=== PATIENT | male | born 1940 | race Caucasian/White ===

== ENCOUNTER → 2016-04-26 | Outpatient (CLI) | payer OTHER ==
--- NOTE | 2016-04-26 18:05 | DX ---
Lumbar spine AP and lateral 1153 hours. History: Low back pain. Findings: Images are degraded secondary to patient's body habitus. Vertebral body heights are well-ma intained. There is about 4 mm of posterior subluxation of L2 on L3. No additional subluxations are ap preciated. There is mild intervertebral disk space narrowing at T12-L1 and at L1-L2 with moderate camelia rowing at L2-L3. Anterior marginal osteophytes are present from T12-L1 through L4-L5. There are no ly tic or sclerotic osseous lesions. No fractures are seen. Impression: 1. 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 2. Mild 4 mm of posterior subluxation of L2 on L3.
== END ==
LOC: GIMAGING 11:46 → EDSTATUS 11:50
PROVIDERS: ATTEND Internal Medicine Geriatric Medicine
DX: S33.120A Subluxation of L2/L3 lumbar vertebra, initial encounter (principal); M47.896 Other spondylosis, lumbar region; M25.78 Osteophyte, vertebrae
CPT/HCPCS: 72080-PO